=== PATIENT | male | born 1950 | race African-American/Black ===

== ENCOUNTER 2020-10-26 12:36 | Emergency (ER) | payer OTHER ==
[~2020-10-26] VITALS: Ht 188 cm; Wt 105.0 kg
[~2020-10-26 12:36] MED LIST: ALBU05
[2020-10-26] MEDS ORDERED: LABETALOL 5MG/ML SYR 20 MG/4 ML SYRINGE IV ONE (13:00)
[2020-10-26 13:59] LABS: BASOPHILS % 0.5 % (0.0-2.0); EOSINOPHILS % 1.7 % (0.0-5.0); HEMATOCRIT. 38.8 % (42.0-52.0); HEMOGLOBIN. 13.5 g/dL (14.0-18.0); LYMPHOCYTES % 33.4 % (20.0-50.0); MEAN CORPUSCULAR HEMOGLOBIN 30.9 pg (28.0-32.0); MEAN CORPUSCULAR VOLUME 89.1 fL (80.0-94.0); MEAN PLATELET VOLUME 9.2 fl (7.4-10.4); MONOCYTES % 8.8 % (2.0-8.0); NEUTROPHILS % 55.6 % (40.0-76.0); PLATELET 205 x1000/uL (130-400); RED BLOOD CELL COUNT 4.36 mill/uL (4.7-6.1); RED CELL DISTRIBUTION WIDTH 13.9 % (11.6-14.6)
[2020-10-26] MEDS ORDERED: CLOPIDOGREL 75MG TABLET PO ONE (14:00)
[2020-10-26] MEDS ORDERED: ASPIRIN 81MG TABLET PO ONE (14:00)
[2020-10-26 14:02] LABS: CHLORIDE 104 mEq/L (98-107)
[2020-10-26 14:04] LABS: CLARITY URINE CLEAR (CLEAR); COLOR URINE YELLOW (YELLOW); KETONES URINE NEGATIVE (NEGATIVE); LEUKOCYTE ESTERASE URINE NEGATIVE (NEGATIVE); NITRITE URINE NEGATIVE (NEGATIVE); OCCULT BLOOD URINE NEGATIVE (NEGATIVE); PROTEIN URINE NEGATIVE (NEGATIVE); SPECIFIC GRAVITY URINE 1.026 (1.005-1.030); UROBILINOGEN URINE 0.2 E.U./dL (0.2-1.0)
[2020-10-26 14:05] LABS: INR 0.9; PROTHROMBIN TIME 10.1 sec (9.6-11.0)
[2020-10-26 14:06] LABS: ETHANOL BLOOD < 10 mg/dL
[2020-10-26 14:09] LABS: LDL CHOLESTEROL 146 mg/dL (5-100)
[2020-10-26 14:43] LABS: *AMPHETAMINES SCREEN URINE NEGATIVE (NEGATIVE); *BARBITURATES SCREEN URINE NEGATIVE (NEGATIVE); *BENZODIAZEPINES SCREEN URINE NEGATIVE (NEGATIVE); *COCAINE SCREEN URINE NEGATIVE (NEGATIVE); CANNABINOID URINE SCREEN PRESUMTIVE POSITIVE (NEGATIVE); METHADONE URINE SCREEN NEGATIVE (NEGATIVE); OPIATES URINE SCREEN NEGATIVE (NEGATIVE); PHENCYCLIDINE URINE SCREEN NEGATIVE (NEGATIVE)
[2020-10-26] MEDS ORDERED: IOHEXOL-350 100 ML BOTTLE ONE (16:38)
[2020-10-26 17:51] VITALS: BP 172/99
== END 2020-10-26 18:09 | disposition short-term general hospital (02) ==
LOC: ER 12:36
DX: R47.81 Slurred speech (principal); R53.1 Weakness; I10 Essential (primary) hypertension; E11.9 Type 2 diabetes mellitus without complications; I48.91 Unspecified atrial fibrillation; Z86.73 Personal history of transient ischemic attack (TIA), and cerebral infarction without residual deficits; D64.9 Anemia, unspecified; I25.10 Atherosclerotic heart disease of native coronary artery without angina pectoris; J45.909 Unspecified asthma, uncomplicated; Z95.1 Presence of aortocoronary bypass graft; F12.90 Cannabis use, unspecified, uncomplicated; Z79.01 Long term (current) use of anticoagulants
CPT/HCPCS: 36415; 70450; 70496; 70498; 70551; 71045; 80053; 80305; 80320; 81003; 82962; 83721; 84484; 85025; 85610; 86850; 86900; 86901; 93005; 96374; 99285; J3490; Q9967; G0480

== ENCOUNTER 2024-03-07 11:06 | Inpatient (IN) | payer MEDICARE, OTHER ==
[2024-03-07] VITALS (9 sets, daily range): BP systolic 98–109; BP diastolic 64–85; PULSE 128–162; RESP 20–36; TEMP 39.4476; O2SAT 96–100
[~2024-03-07] VITALS: Ht 175.3 cm; Wt 94.3 kg
[2024-03-07] MEDS: ACETYLCYSTEINE 200MG/ML 20% VIAL 4ML INH SCH (00:44)
[2024-03-07] MEDS ORDERED: CEFEPIME 2GM IN DEXT 5% 100ML IV ONE (11:30)
[2024-03-07] MEDS: LACTATED RINGERS 1,000 ML IV SCH ×2 (11:33→16:00)
[2024-03-07 11:48] LABS: BASOPHILS % 0.2 % (0.0-2.0); EOSINOPHILS % 0.6 % (0.0-5.0); HEMATOCRIT. 38.7 % (42.0-52.0); HEMOGLOBIN. 12.2 g/dL (14.0-18.0); LYMPHOCYTES % 22.3 % (20.0-50.0); MEAN CORPUSCULAR HEMOGLOBIN 28.9 pg (28.0-32.0); MEAN CORPUSCULAR HGB CONC 31.4 g/dL (31.0-37.0); MEAN PLATELET VOLUME 9.2 fl (7.4-10.4); MONOCYTES % 6.7 % (2.0-8.0); NEUTROPHILS % 70.2 % (40.0-76.0); PLATELET 241 x1000/uL (130-400); RED BLOOD CELL COUNT 4.21 mill/uL (4.7-6.1); RED CELL DISTRIBUTION WIDTH 16.2 % (11.6-14.6); WHITE BLOOD COUNT 11.5 x1000/uL (4.5-11.0)
[2024-03-07] MEDS: ACETAMINOPHEN 650MG SUPP PR SCH (11:51)
[2024-03-07] MEDS: CEFEPIME 2GM/100ML 100 ML IV NR (11:51)
[2024-03-07] MEDS: DILTIAZEM HCL 5MG/ML 5ML VIAL IV ONE (11:51)
[2024-03-07 11:57] LABS: CHLORIDE 115 mEq/L (98-107); POTASSIUM 5.2 mEq/L (3.5-5.1); SODIUM 149 mEq/L (136-145)
[2024-03-07 11:58] LABS: CARBON DIOXIDE 27 mEq/L (21-32)
[2024-03-07 11:59] LABS: CALCIUM 9.7 mg/dL (8.7-10.4)
[2024-03-07 12:03] LABS: CREATININE 0.9 mg/dL (0.6-1.3)
[2024-03-07 12:04] LABS: TROPONIN I HIGH SENSITIVITY 40 ng/L (3.0-53)
[2024-03-07 12:05] LABS: ALANINE AMINOTRANSFERASE 11 IU/L (10-49); ALBUMIN 3.7 g/dL (3.2-4.8); ASPARTATE AMINOTRANSFERASE 43 IU/L (<34)
[2024-03-07 12:06] LABS: BILIRUBIN DIRECT 0.1 mg/dL (<=3.0); BILIRUBIN TOTAL 0.4 mg/dL (0.1-1.0); PROTEIN TOTAL 7.1 g/dL (6.0-8.3)
[2024-03-07 12:14] LABS: UREA NITROGEN BLOOD 38 mg/dL (9-23)
[2024-03-07] MEDS: DILTIAZEM HCL 125 MG in DEXT 5% WATER 100 ML IV PRN (12:22)
[2024-03-07] MEDS: DILTIAZEM HCL 125 MG in DEXT 5% WATER 100 ML IV STA (12:22)
[2024-03-07 12:28] LABS: GLUCOSE 328 mg/dL (70-105)
[2024-03-07] MEDS ORDERED: AMIODARONE HCL 900 MG in DEXT 5% WATER 482 ML IV PRN (12:30)
[2024-03-07 12:41] LABS: PROTHROMBIN TIME 11.4 sec (9.6-11.0)
[2024-03-07] MEDS: AMIODARONE HCL 50MG/ML 3ML VIAL IV ONE (12:51)
[2024-03-07] MEDS: AMIODARONE HCL 900 MG in DEXT 5% WATER 482 ML IV STA (12:51)
[2024-03-07] MEDS: VANCOMYCIN 1.5GM/250ML 250 ML IV SCH (12:51)
[2024-03-07] MEDS: LACTATED RINGERS 1,100 ML IV SCH (12:52)
[2024-03-07 13:03] LABS: CLARITY URINE CLEAR (CLEAR); COLOR URINE YELLOW (YELLOW); GLUCOSE URINE NEGATIVE (NEGATIVE); KETONES URINE NEGATIVE (NEGATIVE); LEUKOCYTE ESTERASE URINE 2+ (NEGATIVE); NITRITE URINE POSITIVE (NEGATIVE); OCCULT BLOOD URINE NEGATIVE (NEGATIVE); PROTEIN URINE 1+ (NEGATIVE); SPECIFIC GRAVITY URINE 1.021 (1.005-1.030)
[2024-03-07] MEDS ORDERED: ACETAMINOPHEN 325MG TABLET PO PRN (13:30)
[2024-03-07] MEDS ORDERED: IPRATROPIUM/ALBUTEROL 0.5-3(2.5)MG/3ML NEB HHN PRN (13:30)
[2024-03-07] MEDS ORDERED: ONDANSETRON HCL 4MG/2ML INJ IV PRN ×2 (13:30→15:30)
[2024-03-07 13:36] LABS: SQUAMOUS EPITHELIAL CELL URINE NONE SEEN /lpf (RARE/1+); WBC URINE 25-50 /hpf (0-2)
[2024-03-07 13:37] LABS: BACTERIA URINE 2+; RBC URINE 0-2 /hpf (0-2); YEAST URINE NONE SEEN
[2024-03-07] MEDS ORDERED: ALBUTEROL (0.083%) 2.5MG/3ML NEB HHN NR (14:00)
[2024-03-07] MEDS: SODIUM POLYSTYRENE SULFONATE 15 G/60 ML BOT PO NR (14:14)
[2024-03-07] MEDS: SODIUM BICARBONATE 8.4% 50MEQ/50ML SYR IV NR (14:42)
[2024-03-07] MEDS: FUROSEMIDE 40MG/4ML VIAL IV NR (14:42)
[2024-03-07] MEDS: CALCIUM CHLORIDE 1GM/10ML SYR IV NR (14:42)
[2024-03-07] MEDS: DEXTROSE 50% WATER 50ML SYRINGE IV NR (14:42)
[2024-03-07] MEDS: PIPERACILLIN/TAZO 3.375G/50ML 50 ML IV SCH (14:43)
[2024-03-07] MEDS: INSULIN REGULAR (HUMULIN R) 1000UNITS/10ML VIAL IV NR (14:43)
[2024-03-07] MEDS ORDERED: SODIUM CHLORIDE 10% FOR INH 15ML NEB INH NR (15:00)
[2024-03-07 15:10] LABS: CREATINE KINASE 336 IU/L (46-171)
[2024-03-07] MEDS: IPRATROPIUM BROMIDE (0.02%) 0.5MG/2.5ML NEB HHN NR (15:23)
[2024-03-07 15:28] LABS: BG BASE EXCESS 3.3 mmol/L (-2.0-3.0); BG FRACTION INSPIRED OXYGEN 100; BG PH 7.469 (7.350-7.450); BG PO2 54.6 mmHg (83.0-108.0); BG SAMPLE SITE LEFT RADIAL; BG VENT MODE MASK - NRB
[2024-03-07] MEDS ORDERED: DEXT 5%/0.9% NACL 1,000 ML IV SCH (15:30)
[2024-03-07 15:43] LABS: TROPONIN I HIGH SENSITIVITY 62 ng/L (3.0-53)
[2024-03-07] MEDS: DILTIAZEM HCL 5MG/ML 5ML VIAL IV NR ×2 (16:00→16:15)
[2024-03-07] MEDS ORDERED: DILTIAZEM HCL 125 MG in DEXT 5% WATER 100 ML IV PRN (16:15)
[2024-03-07] MEDS ORDERED: SODIUM CHLORIDE 0.45% 500 ML IV NR (16:30)
[2024-03-07] MEDS: BLOOD SUGAR DIAGNOSTIC STRIP TEST SCH (17:00)
[2024-03-07] MEDS: METOPROLOL TARTRATE 5MG/5ML VIAL IV NR (17:22)
[2024-03-07] MEDS: SODIUM CHLORIDE 0.45% 1,000 ML IV SCH (17:26)
[2024-03-07 17:46] LABS: BG BASE EXCESS 1.2 mmol/L (-2.0-3.0); BG CARBOXYHEMOGLOBIN 0.2 % (0.5-1.5); BG DEOXYHEMOGLOBIN 0.7 % (0.0-5.0); BG FRACTION INSPIRED OXYGEN 100; BG HCO3 ACT 24.4 mmol/L (21.0-28.0); BG METHEMOGLOBIN 0.3 % (0.5-1.5); BG OXYGEN SATURATION 99.3 % (94.0-98.0); BG OXYHEMOGLOBIN 98.8 % (94.0-98.0); BG PCO2 34.3 mmHg (35.0-48.0); BG PO2 169.6 mmHg (83.0-108.0); BG SAMPLE SITE RIGHT RADIAL; BG TOTAL HEMOGLOBIN 12.6 g/dL (13.5-17.5); BG VENT MODE VENT - AC
[2024-03-07 17:58] LABS: BASOPHILS % 0.2 % (0.0-2.0); EOSINOPHILS % 0.1 % (0.0-5.0); HEMATOCRIT. 35.1 % (42.0-52.0); HEMOGLOBIN. 11.5 g/dL (14.0-18.0); LYMPHOCYTES % 10.4 % (20.0-50.0); MEAN CORPUSCULAR HEMOGLOBIN 29.6 pg (28.0-32.0); MEAN CORPUSCULAR HGB CONC 32.9 g/dL (31.0-37.0); MEAN CORPUSCULAR VOLUME 90.2 fL (80.0-94.0); MEAN PLATELET VOLUME 8.7 fl (7.4-10.4); MONOCYTES % 8.5 % (2.0-8.0); NEUTROPHILS % 80.8 % (40.0-76.0); PLATELET 204 x1000/uL (130-400); RED BLOOD CELL COUNT 3.89 mill/uL (4.7-6.1); RED CELL DISTRIBUTION WIDTH 16.7 % (11.6-14.6); WHITE BLOOD COUNT 11.3 x1000/uL (4.5-11.0)
[2024-03-07 18:06] LABS: CHLORIDE 113 mEq/L (98-107); POTASSIUM 3.8 mEq/L (3.5-5.1); SODIUM 147 mEq/L (136-145)
[2024-03-07 18:07] LABS: CALCIUM 9.3 mg/dL (8.7-10.4); CARBON DIOXIDE 27 mEq/L (21-32)
[2024-03-07 18:12] LABS: CREATININE 0.9 mg/dL (0.6-1.3); GLUCOSE 338 mg/dL (70-105); UREA NITROGEN BLOOD 35 mg/dL (9-23)
[2024-03-07] MEDS: INSULIN LISPRO 100 UNITS/ML SUBCUT SCH (18:34)
[2024-03-07] MEDS: IBUPROFEN 100MG/5ML UDC PO PRN (19:41)
[2024-03-07] MEDS: ENOXAPARIN 40MG/0.4ML SYR SUBCUT SCH (20:00)
[2024-03-07] MEDS ORDERED: METOPROLOL TARTRATE 25MG TABLET PO SCH (21:00)
[2024-03-07] MEDS: PROPOFOL 10MG/ML 100ML 100 ML IV PRN (21:13)
[2024-03-07] MEDS ORDERED: ASPIRIN 300MG SUPP PR PRN (21:45)
[2024-03-07] MEDS: DEXT 5%/0.45% NACL 1000ML 1,000 ML IV SCH (23:22)
[2024-03-07] MEDS: INSULIN GLARGINE 100 UNITS/ML SUBCUT SCH (23:22)
[2024-03-07 23:56] LABS: CREATINE KINASE 362 IU/L (46-171)
[2024-03-08] VITALS (95 sets, daily range): BP systolic 88–137; BP diastolic 59–82; PULSE 105–143; RESP 21–35; TEMP 36.55848–37.9748; O2SAT 98–100
[2024-03-08] MEDS: VANCOMYCIN 750MG PMX (XELLIA) 150 ML IV SCH (00:30)
[2024-03-08 01:19] LABS: BG BASE EXCESS 0.4 mmol/L (-2.0-3.0); BG CARBOXYHEMOGLOBIN 0.3 % (0.5-1.5); BG DEOXYHEMOGLOBIN 0.4 % (0.0-5.0); BG FRACTION INSPIRED OXYGEN 80; BG HCO3 ACT 23.1 mmol/L (21.0-28.0); BG METHEMOGLOBIN 0.3 % (0.5-1.5); BG OXYGEN SATURATION 99.6 % (94.0-98.0); BG PH 7.491 (7.350-7.450); BG PO2 200.9 mmHg (83.0-108.0); BG SAMPLE SITE RIGHT RADIAL; BG TOTAL HEMOGLOBIN 11.4 g/dL (13.5-17.5); BG VENT MODE VENT - AC
[2024-03-08] MEDS: IPRATROPIUM/ALBUTEROL 0.5-3(2.5)MG/3ML NEB HHN SCH (05:36)
[2024-03-08] MEDS: PIPERACILLIN/TAZO 3.375G/50ML 50 ML IV SCH (05:48)
[2024-03-08 05:52] LABS: BASOPHILS % 0.2 % (0.0-2.0); HEMATOCRIT. 31.9 % (42.0-52.0); HEMOGLOBIN. 10.5 g/dL (14.0-18.0); LYMPHOCYTES % 13.5 % (20.0-50.0); MEAN CORPUSCULAR HEMOGLOBIN 29.9 pg (28.0-32.0); MEAN CORPUSCULAR VOLUME 90.6 fL (80.0-94.0); MONOCYTES % 6.7 % (2.0-8.0); NEUTROPHILS % 79.6 % (40.0-76.0); PLATELET 182 x1000/uL (130-400); RED BLOOD CELL COUNT 3.52 mill/uL (4.7-6.1); RED CELL DISTRIBUTION WIDTH 16.4 % (11.6-14.6); WHITE BLOOD COUNT 12.2 x1000/uL (4.5-11.0)
[2024-03-08 06:12] LABS: CARBON DIOXIDE 27 mEq/L (21-32); CHLORIDE 112 mEq/L (98-107); POTASSIUM 3.6 mEq/L (3.5-5.1); SODIUM 147 mEq/L (136-145)
[2024-03-08 06:18] LABS: CREATININE 0.9 mg/dL (0.6-1.3); GLUCOSE 346 mg/dL (70-105); UREA NITROGEN BLOOD 39 mg/dL (9-23)
[2024-03-08] MEDS: PANTOPRAZOLE SODIUM 40 MG/VIAL IV SCH (08:13)
[2024-03-08] MEDS: CLOPIDOGREL 75MG TABLET PO SCH (08:14)
[2024-03-08] MEDS: ASPIRIN 81MG TABLET PO SCH (08:14)
[2024-03-08] MEDS ORDERED: SODIUM CHLORIDE 0.45% 1,000 ML IV SCH (08:30)
[2024-03-08] MEDS ORDERED: LIDOCAINE HCL 1% 10 MG/ML 10ML VIAL ONE ×2 (08:54→12:41)
[2024-03-08] MEDS ORDERED: HYDRALAZINE 20MG/ML VIAL IV PRN (09:30)
[2024-03-08] MEDS ORDERED: LACTATED RINGERS 1,000 ML IV ONE (09:30)
[2024-03-08] MEDS: INSULIN GLARGINE 100 UNITS/ML SUBCUT SCH (09:48)
[2024-03-08] MEDS: SODIUM CHLORIDE 0.45% 1,000 ML IV SCH (11:08)
[2024-03-08] MEDS: BLOOD SUGAR DIAGNOSTIC STRIP TEST SCH (12:35)
[2024-03-08] MEDS: INSULIN LISPRO 100 UNITS/ML SUBCUT SCH (17:16)
[2024-03-08] MEDS: ATORVASTATIN CALCIUM 40MG TABLET PEG SCH (20:29)
[2024-03-09] VITALS (84 sets, daily range): BP systolic 82–157; BP diastolic 58–111; PULSE 105–132; RESP 16–34; TEMP 36.89184–37.61412; O2SAT 99–100
[2024-03-09 06:18] LABS: HEMOGLOBIN 9.5 g/dL (14.0-18.0); MEAN CORPUSCULAR VOLUME 91.2 fL (80.0-94.0); PLATELET 160 x1000/uL (130-400); RED BLOOD CELL COUNT 3.07 mill/uL (4.7-6.1); RED CELL DISTRIBUTION WIDTH 16.4 % (11.6-14.6); WHITE BLOOD COUNT 9.4 x1000/uL (4.5-11.0)
[2024-03-09 06:29] LABS: CARBON DIOXIDE 25 mEq/L (21-32); CHLORIDE 111 mEq/L (98-107); POTASSIUM 2.9 mEq/L (3.5-5.1); SODIUM 144 mEq/L (136-145)
[2024-03-09 06:30] LABS: CALCIUM 8.8 mg/dL (8.7-10.4)
[2024-03-09 06:34] LABS: CREATININE 0.8 mg/dL (0.6-1.3)
[2024-03-09 06:35] LABS: GLUCOSE 248 mg/dL (70-105); UREA NITROGEN BLOOD 31 mg/dL (9-23)
[2024-03-09 06:37] LABS: ALANINE AMINOTRANSFERASE 16 IU/L (10-49); ASPARTATE AMINOTRANSFERASE 23 IU/L (<34); BILIRUBIN TOTAL 0.4 mg/dL (0.1-1.0); PHOSPHORUS 2.9 mg/dL (2.5-4.9); PREALBUMIN 7.7 mg/dl (10.0-40.0); PROTEIN TOTAL 5.9 g/dL (6.0-8.3)
[2024-03-09] MEDS: KCL 20MEQ/100ML PREMIX 100 ML IV NR (08:05)
[2024-03-09] MEDS: KCL 20MEQ/100ML PREMIX 100 ML IV SCH (10:42)
[2024-03-09] MEDS: VANCOMYCIN 1GM PMX (XELLIA) 200 ML IV SCH (12:28)
[2024-03-10] VITALS (58 sets, daily range): BP systolic 100–163; BP diastolic 59–97; PULSE 88–124; RESP 7–30; TEMP 36.16956–38.11416; O2SAT 99–100
[2024-03-10] MEDS: ACETAMINOPHEN 325MG TABLET PO PRN (00:22)
[2024-03-10 06:43] LABS: HEMOGLOBIN 9.5 g/dL (14.0-18.0); MEAN CORPUSCULAR HEMOGLOBIN 30.4 pg (28.0-32.0); MEAN CORPUSCULAR HGB CONC 33.8 g/dL (31.0-37.0); PLATELET 178 x1000/uL (130-400); RED BLOOD CELL COUNT 3.12 mill/uL (4.7-6.1); RED CELL DISTRIBUTION WIDTH 16.3 % (11.6-14.6); WHITE BLOOD COUNT 7.5 x1000/uL (4.5-11.0)
[2024-03-10 06:48] LABS: CHLORIDE 112 mEq/L (98-107); POTASSIUM 3.4 mEq/L (3.5-5.1); SODIUM 144 mEq/L (136-145)
[2024-03-10 06:50] LABS: CALCIUM 8.9 mg/dL (8.7-10.4); CARBON DIOXIDE 25 mEq/L (21-32)
[2024-03-10 06:55] LABS: CREATININE 0.7 mg/dL (0.6-1.3); GLUCOSE 255 mg/dL (70-105); UREA NITROGEN BLOOD 20 mg/dL (9-23)
[2024-03-10 06:57] LABS: ALANINE AMINOTRANSFERASE 18 IU/L (10-49); ALBUMIN 3.1 g/dL (3.2-4.8); ASPARTATE AMINOTRANSFERASE 21 IU/L (<34); BILIRUBIN TOTAL 0.3 mg/dL (0.1-1.0); PHOSPHORUS 2.7 mg/dL (2.5-4.9); PROTEIN TOTAL 6.1 g/dL (6.0-8.3)
[2024-03-10] MEDS: KCL 20MEQ/100ML PREMIX 100 ML IV NR (10:51)
[2024-03-10 13:21] LABS: BG BASE EXCESS 0.1 mmol/L (-2.0-3.0); BG CARBOXYHEMOGLOBIN 0.3 % (0.5-1.5); BG DEOXYHEMOGLOBIN 0.8 % (0.0-5.0); BG FRACTION INSPIRED OXYGEN 40; BG HCO3 ACT 23.3 mmol/L (21.0-28.0); BG METHEMOGLOBIN 0.3 % (0.5-1.5); BG OXYGEN SATURATION 99.2 % (94.0-98.0); BG OXYHEMOGLOBIN 98.6 % (94.0-98.0); BG PCO2 32.4 mmHg (35.0-48.0); BG PH 7.475 (7.350-7.450); BG PO2 163.2 mmHg (83.0-108.0); BG SAMPLE SITE LEFT RADIAL; BG TOTAL HEMOGLOBIN 9.6 g/dL (13.5-17.5); BG TOTAL RESPIRATORY RATE 20 b/min; BG VENT MODE VENT - SIMV
[2024-03-10] MEDS: CEFTRIAXONE 2GM/50ML 50ML IV SCH (13:58)
[2024-03-11] VITALS (53 sets, daily range): BP systolic 96–170; BP diastolic 64–91; PULSE 89–131; RESP 0–39; TEMP 36.61404–37.83636; O2SAT 95–100
[2024-03-11 08:11] LABS: HEMOGLOBIN 9.2 g/dL (14.0-18.0); MEAN CORPUSCULAR HEMOGLOBIN 29.7 pg (28.0-32.0); MEAN CORPUSCULAR HGB CONC 32.9 g/dL (31.0-37.0); MEAN CORPUSCULAR VOLUME 90.2 fL (80.0-94.0); PLATELET 186 x1000/uL (130-400); RED BLOOD CELL COUNT 3.11 mill/uL (4.7-6.1); RED CELL DISTRIBUTION WIDTH 15.6 % (11.6-14.6); WHITE BLOOD COUNT 6.8 x1000/uL (4.5-11.0)
[2024-03-11 08:12] LABS: CHLORIDE 115 mEq/L (98-107); POTASSIUM 3.6 mEq/L (3.5-5.1); SODIUM 148 mEq/L (136-145)
[2024-03-11 08:13] LABS: CARBON DIOXIDE 28 mEq/L (21-32)
[2024-03-11 08:18] LABS: CREATININE 0.6 mg/dL (0.6-1.3); GLUCOSE 127 mg/dL (70-105); UREA NITROGEN BLOOD 15 mg/dL (9-23)
[2024-03-11 14:50] LABS: BG CARBOXYHEMOGLOBIN 0.2 % (0.5-1.5); BG DEOXYHEMOGLOBIN 0.8 % (0.0-5.0); BG FRACTION INSPIRED OXYGEN 30; BG METHEMOGLOBIN 0.3 % (0.5-1.5); BG OXYGEN SATURATION 99.2 % (94.0-98.0); BG OXYHEMOGLOBIN 98.7 % (94.0-98.0); BG PCO2 34.3 mmHg (35.0-48.0); BG PH 7.481 (7.350-7.450); BG SAMPLE SITE RIGHT RADIAL; BG TOTAL HEMOGLOBIN 13.9 g/dL (13.5-17.5); BG VENT MODE VENT - CPAP
[2024-03-12] VITALS (41 sets, daily range): BP systolic 80–146; BP diastolic 53–86; PULSE 79–109; RESP 0–23; TEMP 36.44736–37.2252; O2SAT 96–100
[2024-03-12] MEDS ORDERED: ACETAMINOPHEN 325MG TABLET PO PRN (01:30)
[2024-03-12] MEDS: SODIUM CHLORIDE 0.9% 2,000 ML IV ONE (02:11)
[2024-03-12 05:49] LABS: BG BASE EXCESS -1.2 mmol/L (-2.0-3.0); BG CARBOXYHEMOGLOBIN 0.3 % (0.5-1.5); BG DEOXYHEMOGLOBIN 6.9 % (0.0-5.0); BG HCO3 ACT 22.4 mmol/L (21.0-28.0); BG METHEMOGLOBIN 0.3 % (0.5-1.5); BG OXYGEN SATURATION 93.1 % (94.0-98.0); BG OXYHEMOGLOBIN 92.5 % (94.0-98.0); BG PCO2 33.6 mmHg (35.0-48.0); BG PH 7.442 (7.350-7.450); BG PO2 68.7 mmHg (83.0-108.0); BG SAMPLE SITE RIGHT RADIAL; BG TOTAL HEMOGLOBIN 10.6 g/dL (13.5-17.5); BG VENT MODE ROOM AIR
[2024-03-12 06:27] LABS: HEMATOCRIT 33.9 % (42.0-52.0); HEMOGLOBIN 10.8 g/dL (14.0-18.0); MEAN CORPUSCULAR HEMOGLOBIN 29.9 pg (28.0-32.0); MEAN CORPUSCULAR VOLUME 93.4 fL (80.0-94.0); PLATELET 207 x1000/uL (130-400); RED BLOOD CELL COUNT 3.63 mill/uL (4.7-6.1); RED CELL DISTRIBUTION WIDTH 16.4 % (11.6-14.6); WHITE BLOOD COUNT 7.5 x1000/uL (4.5-11.0)
[2024-03-12 06:36] LABS: CARBON DIOXIDE 25 mEq/L (21-32); CHLORIDE 116 mEq/L (98-107); POTASSIUM 3.6 mEq/L (3.5-5.1); SODIUM 149 mEq/L (136-145)
[2024-03-12 06:41] LABS: CREATININE 0.5 mg/dL (0.6-1.3)
[2024-03-12 06:42] LABS: UREA NITROGEN BLOOD 12 mg/dL (9-23)
[2024-03-12 06:44] LABS: PHOSPHORUS 3.4 mg/dL (2.5-4.9)
[2024-03-12 07:19] LABS: GLUCOSE 36 mg/dL (70-105)
[2024-03-12] MEDS: INSULIN LISPRO 100 UNITS/ML SUBCUT SCH ×2 (07:47→18:00)
[2024-03-12] MEDS: DEXTROSE 50% WATER 50ML SYRINGE IV PRN (08:13)
[2024-03-12] MEDS ORDERED: DEXTROSE 50% WATER 50ML SYRINGE IV PRN (17:15)
[2024-03-12] MEDS ORDERED: DIGOXIN 500MCG/2ML AMP IV PRN (17:30)
[2024-03-12] MEDS: BLOOD SUGAR DIAGNOSTIC STRIP TEST SCH (18:06)
[2024-03-13] VITALS (9 sets, daily range): BP systolic 122–142; BP diastolic 75–87; PULSE 90–116; RESP 17–21; TEMP 36.3918–36.61404; O2SAT 98–100
[2024-03-13 06:44] LABS: CHLORIDE 114 mEq/L (98-107); POTASSIUM 4.5 mEq/L (3.5-5.1); SODIUM 146 mEq/L (136-145)
[2024-03-13 06:45] LABS: CALCIUM 8.5 mg/dL (8.7-10.4); CARBON DIOXIDE 24 mEq/L (21-32)
[2024-03-13 06:50] LABS: CREATININE 0.5 mg/dL (0.6-1.3); GLUCOSE 86 mg/dL (70-105); UREA NITROGEN BLOOD 13 mg/dL (9-23)
[2024-03-13 06:52] LABS: PHOSPHORUS 3.3 mg/dL (2.5-4.9)
[2024-03-13 13:33] LABS: HEMOGLOBIN 9.6 g/dL (14.0-18.0); MEAN CORPUSCULAR HEMOGLOBIN 29.6 pg (28.0-32.0); MEAN CORPUSCULAR HGB CONC 32.1 g/dL (31.0-37.0); MEAN CORPUSCULAR VOLUME 92.1 fL (80.0-94.0); PLATELET 242 x1000/uL (130-400); RED BLOOD CELL COUNT 3.26 mill/uL (4.7-6.1); RED CELL DISTRIBUTION WIDTH 16.6 % (11.6-14.6); WHITE BLOOD COUNT 6.4 x1000/uL (4.5-11.0)
[2024-03-13] MEDS ORDERED: ASPI-1160 PO (14:45)
[2024-03-13] MEDS ORDERED: FAMO-135 PEG (14:45)
[2024-03-13] MEDS ORDERED: APIX5TAB MT (14:45)
[2024-03-13] MEDS ORDERED: LIP40 PEG (14:45)
[2024-03-14] VITALS: BP 136/85; PULSE 107; RESP 20; TEMP 36.61404; O2SAT 98
[2024-03-14 04:00] VITALS: BP 141/82; PULSE 103; RESP 19; TEMP 36.72516; O2SAT 96
[2024-03-14 12:00] VITALS: BP 158/92; PULSE 102; RESP 19; TEMP 37.16964; O2SAT 97
[2024-03-14 16:08] VITALS: BP 158/92; PULSE 102; TEMP 98; O2SAT 97
== END 2024-03-14 19:05 | DRG 871 ==
LOC: ER 11:06 → EDBEDREQSVC 12:56 → EDBEDREQTM 12:56 → EDBEDREQ 12:56 → CVICU 22:43 → 5EST 03-12 12:03 → 7EST 03-13 09:55
PROVIDERS: ADMIT Internal Medicine; ATTEND Internal Medicine
PROC: 5A1945Z Respiratory Ventilation, 24-96 Consecutive Hours (ICD-10-PCS; principal; 2024-03-07)
PROC: 0BH17EZ Insertion of Endotracheal Airway into Trachea, Via Natural or Artificial Opening (ICD-10-PCS; 2024-03-07)
PROC: 05HY33Z Insertion of Infusion Device into Upper Vein, Percutaneous Approach (ICD-10-PCS; 2024-03-08)
PROC: B546ZZA Ultrasonography of Right Subclavian Vein, Guidance (ICD-10-PCS; 2024-03-08)
PROC: 4A00X4Z Measurement of Central Nervous Electrical Activity, External Approach (ICD-10-PCS; 2024-03-09)
DX: A41.9 Sepsis, unspecified organism (principal); G93.41 Metabolic encephalopathy; J96.01 Acute respiratory failure with hypoxia; I21.A1 Myocardial infarction type 2; J69.0 Pneumonitis due to inhalation of food and vomit; E87.0 Hyperosmolality and hypernatremia; Z20.822 Contact with and (suspected) exposure to COVID-19; E11.9 Type 2 diabetes mellitus without complications; I10 Essential (primary) hypertension; R65.20 Severe sepsis without septic shock; J45.909 Unspecified asthma, uncomplicated; F03.90 Unspecified dementia, unspecified severity, without behavioral disturbance, psychotic disturbance, mood disturbance, and anxiety; I48.0 Paroxysmal atrial fibrillation; I16.0 Hypertensive urgency; E87.5 Hyperkalemia; R94.4 Abnormal results of kidney function studies; E86.0 Dehydration; D35.2 Benign neoplasm of pituitary gland; I71.20 Thoracic aortic aneurysm, without rupture, unspecified; D53.9 Nutritional anemia, unspecified; Z79.899 Other long term (current) drug therapy; Z86.73 Personal history of transient ischemic attack (TIA), and cerebral infarction without residual deficits; Z74.01 Bed confinement status; Z90.79 Acquired absence of other genital organ(s); Z85.46 Personal history of malignant neoplasm of prostate; Z93.1 Gastrostomy status
CPT/HCPCS: 31500; 36415; 36573; 36600; 71045; 74018; 80048; 80053; 80061; 80076; 80202; 81003; 82010; 82375; 82550; 82805; 82962; 83036; 83605; 83735; 84100; 84134; 84145; 84484; 85025; 85027; 87070; 87077; 87186; 87426; 93005; 93880; 94003; 94640; 95816; 99291; C1725; C1893; J0282; J0692; J0696; J1650; J1815; J1940; J2470; J2543; J2704; J3370; J3480; J3490; J7060; J7131; J7608